=== PATIENT | female | born 1980 | race Caucasian/White ===

== ENCOUNTER 2020-11-23 23:47 | Emergency (ER) | payer OTHER ==
[~2020-11-23] VITALS: Ht 165.1 cm; Wt 147.0 kg
[~2020-11-23 23:47] MED LIST: FEOSOL45 MG PO; HYDROCHLOROT25 MG OR; IBUPROFEN600 MG OR; IBUPROFEN600 MG PO; LASIX 40 MG TAB40 MG PO; LOSARTAN POT50 MG PO; NAPROSYN500 MG PO; NO HOME MEDICATION; POT CHLORIDE20 ME3 PO; TRAMADOL HCL50 MG OR; WELLBUTRIN150 M2 PO; WELLBUTRIN150 MG OR; ZOLOFT50 MG OR
[2020-11-24] MEDS ORDERED: LOSARTAN POTASS50 MG PO (01:03)
[2020-11-24] MEDS ORDERED: WELLBUTRIN150 M2 PO (01:04)
[2020-11-24] MEDS ORDERED: LASIX 40 MG TAB40 MG PO (01:06)
[2020-11-24] MEDS ORDERED: MOTRIN400 MG/TAB PO (01:10)
[2020-11-24 01:12] VITALS: BP 198/82
== END 2020-11-24 01:26 | disposition home or self-care (01) ==
LOC: ED 23:47
DX: M25.521 Pain in right elbow (principal); I10 Essential (primary) hypertension; J44.9 Chronic obstructive pulmonary disease, unspecified; F31.9 Bipolar disorder, unspecified; F41.9 Anxiety disorder, unspecified; F17.200 Nicotine dependence, unspecified, uncomplicated